=== PATIENT | male | born 1950 | race Caucasian/White ===

== ENCOUNTER → 2021-01-12 10:17 | Outpatient (CLI) | payer MEDICARE, OTHER, SELFPAY ==
[2021-01-12 12:22] LABS: BUN Creatinine Ratio 16.6 (6-22); Blood Urea Nitrogen 25 mg/dL (9-20); Calcium 9.1 mg/dL (8.4-10.2); Carbon Dioxide 25 mmol/L (22-32); Chloride 107 mmol/L (98-107); Estimated Glomerular Filt Rate 45.7 mL/min (>60); Glucose 106 mg/dL (80-110); HEMOLYSIS < 15 (0-50); Potassium 4.4 mmol/L (3.4-5.1); Sodium 138 mmol/L (137-145)
== END ==
PROVIDERS: Referring Provider Urology; Visit Provider Urology
DX: N30.01 Acute cystitis with hematuria (principal); R22.9 Localized swelling, mass and lump, unspecified; N40.1 Benign prostatic hyperplasia with lower urinary tract symptoms; R30.0 Dysuria; R39.15 Urgency of urination; R35.0 Frequency of micturition
CPT/HCPCS: 36415; 51798; 80048; 81002; 87077; 87086; 87186; 99215